=== PATIENT | male | born 1965 | race Caucasian/White ===

== ENCOUNTER 2025-02-09 08:02 | Emergency (ER) | payer BC ==
[2025-02-09] MEDS ORDERED: Acetaminophen 500 MG TAB ONE (08:23)
== END 2025-02-09 09:00 | disposition home or self-care (01) ==
LOC: BURERS 08:02
DX: Z53.21 Procedure and treatment not carried out due to patient leaving prior to being seen by health care provider (principal); R05.9 Cough, unspecified; R50.9 Fever, unspecified